=== PATIENT | female | born 1955 | race Caucasian/White ===

== ENCOUNTER 2018-04-12 14:45 | Inpatient (IN) ==
[2018-04-12 15:46] LABS: Bilirubin,Urine Negative (Negative); Blood,Urine Small (Negative); Clarity,Urine Cloudy (Clear); Color,Urine Yellow (Yellow); Glucose,Urine (UA) Normal (Normal); Ketones,Urine Negative (Negative); Leukocyte Esterase,Urine Large (Negative); Nitrite,Urine Negative (Negative); Protein,Urine 30 mg/dL (Neg-Trace); Specific Gravity,Urine 1.007 (1.010-1.025); Urobilinogen,Urine Normal (Normal)
[2018-04-12 15:49] LABS: Bacteria,Urine Moderate per hpf (None-Few); Hyaline Casts,Urine None Seen per lpf (None-Few); Squamous Epithelial Cell,Urine Moderate per lpf (None-Few); WBC,Urine TNTC per hpf (0-3)
--- NOTE | 2018-04-12 15:51 | Emergency Department Note ---
Disposition Clinical Impression: Urinary tract infection Qualifiers: Urinary tract infection type: site unspecified Hematuria presence: without hematuria Qualified Code(s): N39.0 - Urinary tract infection, site not specified Sepsis Qualifiers: Sepsis type: sepsis due to unspecified organism Qualified Code(s): A41.9 - Sepsis, unspecified organism Disposition: Admitted As Inpatient Condition: Fair Time of Disposition: 17:13 General Adult HPI - General Chief complaint: ED Urogenital-Female Stated complaint: UTI-worsening Time Seen by Provider: 04/12/18 15:03 Source: patient Limitations: no limitations Nursing Notes Reviewed: Yes Vital Signs Reviewed: Yes - History of Present Illness HPI Narrative: Patient is a 63-year-old female presenting to [facility] ED for a one-month history of gradually worsening UTI symptoms. Patient states that she was treated 1 month ago at an outpatient urgent care with a 5 day course of Bactrim for recurrent UTI symptoms. Patient states this treatment did very little to relieve her symptoms and that they have progressively worsened until today at approximately 11 AM when she noticed that she had increased fatigue, dizziness/lightheadedness/vertigo, and pain/"achiness" all throughout her body. Patient states that her mouth is dry and that she has a degree of odynophagia based on dry mouth. Patient states that she is intensely thirsty, and states that she has tinnitus, blurred vision, and feels like "you feel when you have a very high fever". Patient states that she is a type II diabetic that has experienced recurrent UTIs with subsequent yeast infections upon antibiotic therapy. Patient states that her blood sugar was 97 this morning and 130 this afternoon. Patient denies headache, chest pain, shortness of breath, nausea/vomiting, she admits to dark colored concentrated urine but denies hematuria or hematochezia. Pt Subjective Complaint: General malaise Onset (ago): month(s) Pain Severity: severe Pain Scale: 8 Improves with: nothing Worsens with: nothing Associated symptoms: Reports: fever/chills, malaise, weakness - Related Data Home Medications Medication Instructions Recorded Confirmed Glyburide-Metformin 5-500 mg 02/10/18 Lisinopril 02/10/18 Prilosec 02/10/18 Venlafaxine XR (24 HR) 02/10/18 Vitamin B12 02/10/18 Vitamin D 02/10/18 Previous Rx's Medication Instructions Recorded Albuterol Neb [Proventil Neb] 2.5 mg IH Q4-6H PRN #20 vial.neb 02/10/18 Amoxicillin/Clavulanate [Augmentin] 875 mg PO BIDWM 10 Days #20 tablet 02/10/18 Promethazine/Dextromethorphan 5 ml PO Q6HR PRN #90 ml 02/10/18 [Promethazine-Dm Syrup] Allergies Allergy/AdvReac Type Severity Reaction Status Date / Time No Known Allergies Allergy Verified 04/12/18 15:23 All systems ED: reviewed and negative except as stated. Review of Systems: As Per HPI Constitutional: Reports: fever, chills, weakness Eyes: Reports: vision change ENT ED: Reports: other (Tinnitus) Cardiovascular: Denies: chest pain Respiratory: Denies: dyspnea Gastrointestinal: Denies: abdominal pain, nausea, vomiting Genitourinary: Reports: dysuria. Denies: hematuria Musculoskeletal: Reports: arthralgia, myalgia Neurological: Reports: weakness. Denies: numbness, paresthesias Endocrine: Reports: fatigue, heat or cold intolerance Hematological/Lymphatic: Reports: lymphadenopathy Past Medical History - Past Medical History Medical history: Reports: diabetes, hypertension Psychiatric history: Reports: no psych history [employer] history: Reports: bilateral tubal ligation - Social History Smoking Status: Former smoker Smokeless Tobacco Status: No Alcohol use: Reports: none Drug use: Reports: none Physical Exam - General Limitations: no limitations General appearance: alert, other (Ill appearing) - Head Head exam: atraumatic, normocephalic, normal inspection - Eye Eye exam: Present: normal appearance, PERRL, EOMI. Absent: scleral icterus, conjunctival injection - Neck Neck exam: Present: normal inspection, trachea midline - Chest Chest inspection: Present: normal inspection, symmetric chest wall rise - Respiratory Respiratory exam: Present: normal lung sounds bilaterally. Absent: respiratory distress, wheezes, stridor, accessory muscle use, prolonged expiratory phase - Cardiovascular Cardiovascular exam: Present: regular rate, normal rhythm, normal heart sounds, +S1, +S2. Absent: JVD, +S3, +S4 - Abdominal Exam Abdominal exam: Present: soft, tenderness, normal bowel sounds. Absent: distention, guarding, rebound, rigidity Abdominal tenderness: Present: suprapubic, diffuse - Back Exam Back exam: Absent: CVA tenderness (R), CVA tenderness (L) - Neurological Exam Neurological exam: Present: alert, oriented X3 - Psychiatric Psychiatric exam: Present: normal affect, normal mood - Skin Skin exam: Present: warm, dry, intact, erythema. Absent: cyanosis, diaphoresis Course Course Narrative: Patient presentation meets Sirs criteria in with tachycardia, tachypnea, and fever to 101.5. ED sepsis order set initiated with sepsis labs in addition to chest x-ray and CT scan of the abdomen and pelvis performed. - Reevaluation(s) Reevaluation #1: Urinalysis resulted identifying source of infection. Patient now meets sepsis criteria. IV antibiotics vancomycin and Zosyn began for broad-spectrum coverage. Time: 16:57 Vital Signs Temperature 100.0 F H 04/12/18 14:57 Pulse Rate 127 04/12/18 14:57 Respiratory Rate 22 04/12/18 14:57 Blood Pressure 156/83 04/12/18 14:57 O2 Sat by Pulse Oximetry 97 04/12/18 14:57 Temperature 101.5 F H 04/12/18 15:23 Pulse Rate 97 04/12/18 17:08 Respiratory Rate 20 04/12/18 17:08 Blood Pressure 150/82 04/12/18 17:08 O2 Sat by Pulse Oximetry 97 04/12/18 17:08 Oxygen Delivery Oxygen Delivery Room Air Medical Decision Making - MDM Narrative Medical decision making narrative: Urinalysis identified source of infection. Patient now meets sepsis criteria. Vancomycin and Zosyn initiated for broad-spectrum antibiotic coverage. Patient will be admitted to the hospital for further antibiotic management and symptom control. Hospitalist accepted admission. Plans for admission discussed with the patient and patient is in agreement with this plan. - Lab Data Lab results reviewed: Yes I reviewed the patient's lab results. Result diagrams: 04/12/18 15:45 04/12/18 15:45 Lab Results 04/12/18 04/12/18 04/12/18 Range/Units 15:36 15:45 15:45 WBC (4.3-11.1) K/mcL RBC (3.82-4.97) M/mcL Hgb (11.5-15.4) g/dL Hct (35.3-44.9) % MCV (83.0-100.0) fL MCH (28.0-33.3) pg MCHC (31.6-35.5) g/dL RDW (11.5-14.5) % Plt Count (140-400) K/mcL MPV (9.4-12.4) fL Immature Gran % (0-4) % Seg Neutrophils % % Lymphocytes % % Monocytes % % Eosinophils % % Basophils % % Neutrophils # (1.6-8.9) K/mcL Lymphocytes # (0.6-4.6) K/mcL Monocytes # (0.0-1.3) K/mcL Eosinophils # (0.0-0.6) K/mcL Basophils # (0.0-0.2) K/mcL PT (9.4-12.1) Seconds INR APTT (26.0-36.0) Seconds VBG pH (7.32-7.42) pH Units VBG pCO2 (41-51) mmHg VBG pO2 (25-50) mmHg VBG HCO3 (21-27) mEq/L Sodium (136-145) mEq/L Potassium (3.5-5.1) mEq/L Chloride (98-107) mEq/L Carbon Dioxide (23-29) mEq/L BUN (8-23) mg/dL Creatinine (0.60-1.20) mg/dL Est GFR ( Amer) (> 60) Est GFR (Non-Af Amer) (> 60) BUN/Creatinine Ratio (6-26) Glucose (70-105) mg/dL Calculated Osmolality (280-300) Lactic Acid (0.5-2.2) mmol/L Calcium (8.6-10.3) mg/dL Phosphorus (2.7-4.5) mg/dL Magnesium (1.6-2.6) mg/dL Total Bilirubin (0.3-1.0) mg/dL Direct Bilirubin (0.0-0.2) mg/dL Indirect Bilirubin (0.0-1.2) mg/dL AST (13-39) Units/L ALT (7-52) Units/L Alkaline Phosphatase (34-104) Units/L Troponin I (< 0.04) ng/mL B-Natriuretic Peptide 24 (Less than 100) pg/mL Serum Total Protein (6.4-8.9) g/dL Albumin (3.5-5.7) g/dL Globulin (2.4-3.5) g/dL Albumin/Globulin Ratio (1.1-2.2) Lipase 33 (11-82) Units/L Urine Color Yellow (Yellow) Urine Clarity Cloudy A (Clear) Urine pH 6.0 (5.0-8.0) pH Units Ur Specific [place] 1.007 L (1.010-1.025) Urine Protein 30 H (Neg-Trace) mg/dL Urine Glucose (UA) Normal (Normal) mg/dL Urine Ketones Negative (Negative) mg/dL Urine Blood Small H (Negative) Urine Nitrite Negative (Negative) Urine Bilirubin Negative (Negative) Urine Urobilinogen Normal (Normal) mg/dL Ur Leukocyte Esterase Large H (Negative) Urine Microscopic RBC 5-15 H (0-3) per hpf Urine Microscopic WBC TNTC H (0-3) per hpf Ur Squamous Epith Cells Moderate H (None-Few) per lpf Urine Bacteria Moderate H (None-Few) per hpf Hyaline Casts None Seen (None-Few) per lpf Ur Culture Indicated? YES A (NO) 04/12/18 04/12/18 04/12/18 Range/Units 15:45 15:45 15:45 WBC 11.9 H (4.3-11.1) K/mcL RBC 4.06 (3.82-4.97) M/mcL Hgb 12.6 (11.5-15.4) g/dL Hct 36.8 (35.3-44.9) % MCV 90.6 (83.0-100.0) fL MCH 31.0 (28.0-33.3) pg MCHC 34.2 (31.6-35.5) g/dL RDW 12.1 (11.5-14.5) % Plt Count 286 (140-400) K/mcL MPV 9.0 L (9.4-12.4) fL Immature Gran % 0.3 (0-4) % Seg Neutrophils % 78.3 % Lymphocytes % 15.7 % Monocytes % 5.0 % Eosinophils % 0.4 % Basophils % 0.3 % Neutrophils # 9.3 H (1.6-8.9) K/mcL Lymphocytes # 1.9 (0.6-4.6) K/mcL Monocytes # 0.6 (0.0-1.3) K/mcL Eosinophils # 0.1 (0.0-0.6) K/mcL Basophils # 0.0 (0.0-0.2) K/mcL PT 11.9 (9.4-12.1) Seconds INR 1.1 APTT 26.6 (26.0-36.0) Seconds VBG pH (7.32-7.42) pH Units VBG pCO2 (41-51) mmHg VBG pO2 (25-50) mmHg VBG HCO3 (21-27) mEq/L Sodium 137 (136-145) mEq/L Potassium 3.7 (3.5-5.1) mEq/L Chloride 99 (98-107) mEq/L Carbon Dioxide 27 (23-29) mEq/L BUN 13 (8-23) mg/dL Creatinine 0.96 (0.60-1.20) mg/dL Est GFR ( Amer) > 60 (> 60) Est GFR (Non-Af Amer) 59 L (> 60) BUN/Creatinine Ratio 14 (6-26) Glucose 127 H (70-105) mg/dL Calculated Osmolality 286 (280-300) Lactic Acid (0.5-2.2) mmol/L Calcium 9.4 (8.6-10.3) mg/dL Phosphorus 2.8 (2.7-4.5) mg/dL Magnesium 1.4 L (1.6-2.6) mg/dL Total Bilirubin 0.8 (0.3-1.0) mg/dL Direct Bilirubin 0.1 (0.0-0.2) mg/dL Indirect Bilirubin 0.7 (0.0-1.2) mg/dL AST 15 (13-39) Units/L ALT 16 (7-52) Units/L Alkaline Phosphatase 92 (34-104) Units/L Troponin I < 0.03 (< 0.04) ng/mL B-Natriuretic Peptide (Less than 100) pg/mL Serum Total Protein 7.3 (6.4-8.9) g/dL Albumin 4.2 (3.5-5.7) g/dL Globulin 3.1 (2.4-3.5) g/dL Albumin/Globulin Ratio 1.4 (1.1-2.2) Lipase (11-82) Units/L Urine Color (Yellow) Urine Clarity (Clear) Urine pH (5.0-8.0) pH Units Ur Specific [place] (1.010-1.025) Urine Protein (Neg-Trace) mg/dL Urine Glucose (UA) (Normal) mg/dL Urine Ketones (Negative) mg/dL Urine Blood (Negative) Urine Nitrite (Negative) Urine Bilirubin (Negative) Urine Urobilinogen (Normal) mg/dL Ur Leukocyte Esterase (Negative) Urine Microscopic RBC (0-3) per hpf Urine Microscopic WBC (0-3) per hpf Ur Squamous Epith Cells (None-Few) per lpf Urine Bacteria (None-Few) per hpf Hyaline Casts (None-Few) per lpf Ur Culture Indicated? (NO) 04/12/18 04/12/18 Range/Units 15:45 16:05 WBC (4.3-11.1) K/mcL RBC (3.82-4.97) M/mcL Hgb (11.5-15.4) g/dL Hct (35.3-44.9) % MCV (83.0-100.0) fL MCH (28.0-33.3) pg MCHC (31.6-35.5) g/dL RDW (11.5-14.5) % Plt Count (140-400) K/mcL MPV (9.4-12.4) fL Immature Gran % (0-4) % Seg Neutrophils % % Lymphocytes % % Monocytes % % Eosinophils % % Basophils % % Neutrophils # (1.6-8.9) K/mcL Lymphocytes # (0.6-4.6) K/mcL Monocytes # (0.0-1.3) K/mcL Eosinophils # (0.0-0.6) K/mcL Basophils # (0.0-0.2) K/mcL PT (9.4-12.1) Seconds INR APTT (26.0-36.0) Seconds VBG pH 7.42 (7.32-7.42) pH Units VBG pCO2 45 (41-51) mmHg VBG pO2 45 (25-50) mmHg VBG HCO3 29 H (21-27) mEq/L Sodium (136-145) mEq/L Potassium (3.5-5.1) mEq/L Chloride (98-107) mEq/L Carbon Dioxide (23-29) mEq/L BUN (8-23) mg/dL Creatinine (0.60-1.20) mg/dL Est GFR ( Amer) (> 60) Est GFR (Non-Af Amer) (> 60) BUN/Creatinine Ratio (6-26) Glucose (70-105) mg/dL Calculated Osmolality (280-300) Lactic Acid 1.5 (0.5-2.2) mmol/L Calcium (8.6-10.3) mg/dL Phosphorus (2.7-4.5) mg/dL Magnesium (1.6-2.6) mg/dL Total Bilirubin (0.3-1.0) mg/dL Direct Bilirubin (0.0-0.2) mg/dL Indirect Bilirubin (0.0-1.2) mg/dL AST (13-39) Units/L ALT (7-52) Units/L Alkaline Phosphatase (34-104) Units/L Troponin I (< 0.04) ng/mL B-Natriuretic Peptide (Less than 100) pg/mL Serum Total Protein (6.4-8.9) g/dL Albumin (3.5-5.7) g/dL Globulin (2.4-3.5) g/dL Albumin/Globulin Ratio (1.1-2.2) Lipase (11-82) Units/L Urine Color (Yellow) Urine Clarity (Clear) Urine pH (5.0-8.0) pH Units Ur Specific [place] (1.010-1.025) Urine Protein (Neg-Trace) mg/dL Urine Glucose (UA) (Normal) mg/dL Urine Ketones (Negative) mg/dL Urine Blood (Negative) Urine Nitrite (Negative) Urine Bilirubin (Negative) Urine Urobilinogen (Normal) mg/dL Ur Leukocyte Esterase (Negative) Urine Microscopic RBC (0-3) per hpf Urine Microscopic WBC (0-3) per hpf Ur Squamous Epith Cells (None-Few) per lpf Urine Bacteria (None-Few) per hpf Hyaline Casts (None-Few) per lpf Ur Culture Indicated? (NO) - Radiology Data Radiology results reviewed: Yes I reviewed the patient's radiology results. Chest X-Ray 04/12/18 15:28 IMPRESSION: No radiographic evidence of acute cardiopulmonary process. No significant change since previous examination. D/ / Tay Elias MD / Tay Elias MD Interpreting Provider: Tay Elias MD Abdomen/Pelvis CT 04/12/18 15:29 IMPRESSION: 1. No acute findings within the abdomen or pelvis. There are mild changes suggestive of a cystitis. 2. No evidence of obstructive uropathy or significant perinephric inflammatory changes. Evaluation for pyelonephritis is limited by the lack of intravenous contrast. 3. Status post cholecystectomy. Diverticulosis with no acute features. D/ / 04/12/2018 16:49:12 Pete Joseph MD / alda Interpreting Provider: Pete Joseph MD - EKG Data EKG #1 EKG attestation: Yes I reviewed and interpreted this EKG. EKG results narrative: Patient EKG shows a sinus tachycardia with heart rate of 110 bpm, UT interval 163 ms, QRS duration of 91 ms, QT/QTc interval of 319/432 ms respectively. Meadow appears to be normal without any significant ST segment elevations, depressions, T-wave inversions, pathologic Q waves, or any other signs of acute ischemic glen[place] nge. EKG performed today is generally consistent with prior EKG performed on February [id number]. Critical Care Time Critical Care Time: Yes Total Critical Care Time: 35 Attestation: Critical care time 35 minutes managing patient's sepsis. Attestation Statement - Attestation Attestation: Patient was seen with resident physician. I reviewed the history, physical, assessment and plan, and agree with the findings. I also personally evaluated this patient and had laiw-oh-hfpt time with this patient. 63-year-old female presents to the emergency Department chief complaint of generalized malaise and not feeling well. Patient apparently was diagnosed with urinary tract infection approximately one month ago. She do 5 day course of Bactrim. Symptoms really never resolved and she was given some Pyridium to try and help. She has taken out a little bit but progressively has gotten worse. She still has some mild dysuria. No abdominal pain. No nausea or vomiting. She says she has pain from head to toe and just feels generally weakened. She is also had some fevers at home. Review of systems as above remained reviewed negative. Vital signs febrile and tachycardic. ENT is unremarkable. Heart regular rhythm and rate. Lungs clear. Abdomen is soft and nontender. Extremities unremarkable. Neurologically intact. Skin no rashes. Psych normal. ED course patient met sepsis criteria with triage vital signs. This continued with elevated white blood cell count. Patient was given IV antibiotics and fluids. We are able to keep a good blood pressure. Urinalysis was positive for UTI. We will do CT scan the chest x-ray as well. Patient will be admitted for IV antibiotic therapy. Hemodynamically she remained stable while in the emergency department. Her heart rate was improved. Tolerated IV fluids well. CT scan of the abdomen did not reveal any significant abnormalities. Chest x- ray was also unremarkable. Labs showed elevated white blood cell count. We spoke to the hospital service agreed to admit the patient. Critical care time 35 minutes. Agree with resident physician assessment and plan.
[2018-04-12 16:05] LABS: Basophils % 0.3 %; Eosinophils # 0.1 K/mcL (0.0-0.6); Eosinophils % 0.4 %; Hematocrit 36.8 % (35.3-44.9); Hemoglobin 12.6 g/dL (11.5-15.4); Immature Granulocytes % 0.3 % (0-4); Lymphocytes # 1.9 K/mcL (0.6-4.6); Lymphocytes % 15.7 %; Mean Corpuscular HGB Conc 34.2 g/dL (31.6-35.5); Mean Corpuscular Volume 90.6 fL (83.0-100.0); Monocytes # 0.6 K/mcL (0.0-1.3); Neutrophils # 9.3 K/mcL (1.6-8.9); Platelet Count 286 K/mcL (140-400); Red Blood Count 4.06 M/mcL (3.82-4.97); Red Cell Distribution Width 12.1 % (11.5-14.5); Segmented Neutrophils % 78.3 %
[2018-04-12 16:08] LABS: VBG HCO3 29 mEq/L (21-27); VBG PCO2 45 mmHg (41-51); VBG PH 7.42 pH Units (7.32-7.42); VBG PO2 45 mmHg (25-50)
[2018-04-12] MEDS: 0.9 % Sodium Chloride 1,000 ML IVC SCH ×3 (16:12→20:29)
[2018-04-12 16:16] LABS: INR 1.1; Prothrombin Time 11.9 Seconds (9.4-12.1)
[2018-04-12 16:18] LABS: Activated Partial Thrombo Time 26.6 Seconds (26.0-36.0)
[2018-04-12 16:28] LABS: Alanine Aminotransferase 16 Units/L (7-52); Albumin 4.2 g/dL (3.5-5.7); Albumin/Globulin Ratio 1.4 (1.1-2.2); Alkaline Phosphatase 92 Units/L (34-104); Aspartate Amino Transferase 15 Units/L (13-39); BUN/Creatinine Ratio 14 (6-26); Bilirubin,Direct 0.1 mg/dL (0.0-0.2); Bilirubin,Indirect 0.7 mg/dL (0.0-1.2); Bilirubin,Total 0.8 mg/dL (0.3-1.0); Blood Urea Nitrogen 13 mg/dL (8-23); Calcium 9.4 mg/dL (8.6-10.3); Carbon Dioxide 27 mEq/L (23-29); Chloride 99 mEq/L (98-107); Globulin 3.1 g/dL (2.4-3.5); Glucose 127 mg/dL (70-105); Magnesium 1.4 mg/dL (1.6-2.6); Osmolality,Calculated 286 (280-300); Phosphorous 2.8 mg/dL (2.7-4.5); Potassium 3.7 mEq/L (3.5-5.1); Sodium 137 mEq/L (136-145); Total Protein 7.3 g/dL (6.4-8.9); Troponin I < 0.03 ng/mL (< 0.04); eGFR For Non-African Americans 59 (> 60)
[2018-04-12] MEDS ORDERED: Naloxone 0.4 MG/ML INJ IVP PRN (17:22)
[2018-04-12] MEDS: Piperacillin/Tazobactam 3.375 GM in 0.9 % Sodium Chloride Mini Bag 100 ML IVPB SCH (17:22)
[2018-04-12] MEDS ORDERED: 0.9 % Sodium Chloride w KCl 20 MEQ/1,000 ML MLS IVC SCH (17:30)
--- NOTE | 2018-04-12 17:35 | Internal Med History&Physical ---
Date of Encounter: 04/12/18 Time of Encounter: 17:29 Internal Medicine - H&P: HPI Chief complaint: dysuria Admitted From: Home Plans for Post Hospital Care: Home History of present illness: Ms. Louise is a 63 year old female with history of diabetes and hypertension presented to the emergency department with complaint of dysuria. As per patient her symptoms has been bothering her for the past 1 month and she is visited outpatient urgent care and has received 5 day course of Bactrim for recurrent urinary tract symptoms. she reports that she has pain on urination, frequency, denies hematuria or itching or discharge. she is sexually active with her . Her symptoms progressively worsened until the day of admission she developed chills, increased fatigue, dizziness and lightheadedness and "achiness" all throughout her body so she decided to come to the emergency department for further evaluation. she denies chest pain, palpitations, N/v/D, LOC, loss of function in her extremities, head trauma, falls, back pain Past Med Surg Social Fam HX - Past Medical History Medical history: diabetes, hypertension Psychiatric history: no psych history - Past Surgical History Surgical History: non-contributory - Social History Smoking Status: Former smoker Smokeless Tobacco Status: No Alcohol use: none Drug use: none Internal Medicine - H&P: Meds Albuterol Neb [Proventil Neb] 2.5 mg IH Q4-6H PRN #20 vial.neb 02/10/18 [Rx] Amoxicillin/Clavulanate [Augmentin] 875 mg PO BIDWM 10 Days #20 tablet 02/10/18 [Rx] Glyburide-Metformin 5-500 mg 02/10/18 [History] Lisinopril 02/10/18 [History] Prilosec 02/10/18 [History] Promethazine/Dextromethorphan [Promethazine-Dm Syrup] 5 ml PO Q6HR PRN #90 ml 02/10/18 [Rx] Venlafaxine XR (24 HR) 02/10/18 [History] Vitamin B12 02/10/18 [History] Vitamin D 02/10/18 [History] Allergy/AdvReac Type Severity Reaction Status Date / Time No Known Allergies Allergy Verified 04/12/18 15:23 All Systems PM: review of systems was performed and is negative for pertinent findings except as documented above in the HPI. - Constitutional Vitals: Temp Pulse Resp BP Pulse Ox 101.5 F H 97 20 150/82 97 04/12/18 15:23 04/12/18 17:08 04/12/18 17:08 04/12/18 17:08 04/12/18 17:08 Exam: General: Patient is alert, oriented, no acute distress, obese Head: atraumatic, normocephalic, Eye: normal appearance, PERRL, no scleral icterus, no conjunctival injection ENT: mucous membranes moist, normal external ear exam Neck: normal inspection, trachea midline, full ROM, no carotid bruits Chest: normal inspection, symmetric chest rise Respiratory: Good respiratory effort. Bilateral breath sounds are clear without wheezing, crackles, or rhonchi. Cardiovascular: Regular rate and rhythm. s1 and s2 No clicks, rubs, gallops, or murmors. Abdomen: Bowel sounds present normoactive x-4 quadrants. Abdomen is soft, nondistended. no Epigastric tenderness. No guarding or rebound. No organomegaly noted, obese, no CAV tenderness musculoskeletal: Spontaneously moving all extremities. no edema, no calf tenderness Skin: warm, dry, intact. Neuro: Alert and oriented x4. Sensation light touch intact. Cranial nerves 2- 12 is intact. Not aphasic, rapid hand movements intact, [id number] intact, strength is 5/5 in all extremities Psych: Patient's affect is normal Internal Med - H&P Results - Labs CBC & Chem 7: 04/12/18 15:45 04/12/18 15:45 Labs: Short CBC 04/12/18 Range/Units 15:45 WBC 11.9 H (4.3-11.1) K/mcL Hgb 12.6 (11.5-15.4) g/dL Hct 36.8 (35.3-44.9) % Plt Count 286 (140-400) K/mcL Neutrophils # 9.3 H (1.6-8.9) K/mcL BMP 04/12/18 15:45 Sodium 137 Potassium 3.7 Chloride 99 Carbon Dioxide 27 BUN 13 Creatinine 0.96 Glucose 127 H Calcium 9.4 Cardiac Enzymes 04/12/18 Range/Units 15:45 Troponin I < 0.03 (< 0.04) ng/mL Liver Function 04/12/18 Range/Units 15:45 Total Bilirubin 0.8 (0.3-1.0) mg/dL Direct Bilirubin 0.1 (0.0-0.2) mg/dL AST 15 (13-39) Units/L ALT 16 (7-52) Units/L Alkaline Phosphatase 92 (34-104) Units/L Albumin 4.2 (3.5-5.7) g/dL Urine 04/12/18 Range/Units 15:36 Urine Color Yellow (Yellow) Urine Clarity Cloudy A (Clear) Urine pH 6.0 (5.0-8.0) pH Units Ur Specific [place] 1.007 L (1.010-1.025) Urine Protein 30 H (Neg-Trace) mg/dL Urine Glucose (UA) Normal (Normal) mg/dL - ABG Interpretation ABG results: 04/12/18 16:05 VBG pH 7.42 VBG pCO2 45 VBG pO2 45 VBG HCO3 29 H - EKG Data -: EKG Interpreted by Myself (sinus tachycardia, QT 432) - EKG Data Prior EKG available for review: yes When compared to previous EKG: there is no significant change - Impressions ITS Impressions Chest X-Ray 04/12/18 15:28 IMPRESSION: No radiographic evidence of acute cardiopulmonary process. No significant change since previous examination. D/ / Tay Elias MD / Tay Elias MD Interpreting Provider: Tay Elias MD Abdomen/Pelvis CT 04/12/18 15:29 IMPRESSION: 1. No acute findings within the abdomen or pelvis. There are mild changes suggestive of a cystitis. 2. No evidence of obstructive uropathy or significant perinephric inflammatory changes. Evaluation for pyelonephritis is limited by the lack of intravenous contrast. 3. Status post cholecystectomy. Diverticulosis with no acute features. D/ / 04/12/2018 16:49:12 Pete Joseph MD / alda Interpreting Provider: Pete Joseph MD - Assessment and plan (1) Complicated UTI (urinary tract infection) Current Visit: Yes Status: Acute Assessment and plan: failed multiple OP therapies was started on zosyn will continue follow ucx and bcx and deescalate as per cx CT A/P IMPRESSION: 1. No acute findings within the abdomen or pelvis. There are mild changes suggestive of a cystitis. 2. No evidence of obstructive uropathy or significant perinephric inflammatory changes. Evaluation for pyelonephritis is limited by the lack of intravenous contrast. 3. Status post cholecystectomy. Diverticulosis with no acute features. (2) Sepsis Current Visit: Yes Status: Acute Assessment and plan: secondary to complicated UTI fever 101.5, tachycardic 127, leukocytosis 11.9 lactic acid WNL follow gomez cx IV zosyn rest of management as per above Qualifiers: Sepsis type: sepsis due to unspecified organism Qualified Code(s): A41.9 - Sepsis, unspecified organism (3) Diabetes type 2, controlled Current Visit: Yes Status: Acute Assessment and plan: hold oral hypoglycemics and start insulin sliding scale adjust as per finger sticks Qualifiers: Diabetes mellitus ocean transportation intermediary insulin use: without ocean transportation intermediary use Diabetes mellitus complication status: without complication Qualified Code(s): E11.9 - Type 2 diabetes mellitus without complications (4) HTN (hypertension) Current Visit: Yes Status: Acute Assessment and plan: continue home medications once verified if not CI Qualifiers: Hypertension type: essential hypertension Qualified Code(s): I10 - Essential (primary) hypertension (5) DVT prophylaxis Current Visit: Yes Status: Acute Assessment and plan: heparin sc (6) Morbidly obese Current Visit: Yes Status: Acute Assessment and plan: BMI 43 nutrition consult - Time Spent With Patient Total time spent is greater than 50% in coordination of care (as documented) at patient's floor/unit and/or counseling patient:
[2018-04-12] MEDS ORDERED: Dextrose Gel 15 GM/37.5 ML TUBE PO PRN ×2 (17:50)
[2018-04-12] MEDS ORDERED: *HR* Dextrose 50 % in Water (Syg) 50 ML SYRINGE IVP PRN (17:50)
[2018-04-12] MEDS ORDERED: D5% in Water 1,000 ML IVC PRN (17:50)
[2018-04-12] MEDS: Acetaminophen 325 MG TABLET PO PRN (20:22)
[2018-04-12] MEDS: Insulin LISPRO 300 UNITS/3 ML VIAL SQ SCH (21:58)
[2018-04-12] MEDS: *HR* Heparin 5,000 UNIT/ML VIAL SQ SCH (21:59)
[2018-04-13] MEDS ORDERED: Piperacillin/Tazobactam 3.375 GM in 0.9 % Sodium Chloride Mini Bag 100 ML IVPB SCH
[2018-04-13] MEDS: Insulin LISPRO 300 UNITS/3 ML VIAL SQ SCH ×4 (02:00→16:30)
[2018-04-13] MEDS: Piperacillin/Tazobactam 3.375 GM in 0.9 % Sodium Chloride Mini Bag 100 ML IVPB SCH ×3 (03:03→17:51)
[2018-04-13] MEDS: Acetaminophen 325 MG TABLET PO PRN ×4 (03:32→21:07)
[2018-04-13 04:39] LABS: Basophils % 0.2 %; Eosinophils % 0.4 %; Immature Granulocytes % 0.3 % (0-4); Lymphocytes # 1.9 K/mcL (0.6-4.6); Lymphocytes % 17.7 %; Mean Corpuscular HGB Conc 34.1 g/dL (31.6-35.5); Mean Corpuscular Hemoglobin 31.1 pg (28.0-33.3); Mean Corpuscular Volume 91.4 fL (83.0-100.0); Mean Platelet Volume 9.5 fL (9.4-12.4); Monocytes # 0.9 K/mcL (0.0-1.3); Monocytes % 8.2 %; Neutrophils # 7.8 K/mcL (1.6-8.9); Platelet Count 248 K/mcL (140-400); Red Cell Distribution Width 12.2 % (11.5-14.5); Segmented Neutrophils % 73.2 %
[2018-04-13 04:42] LABS: Hemoglobin 10.9 g/dL (11.5-15.4)
[2018-04-13 05:00] LABS: BUN/Creatinine Ratio 15 (6-26); Blood Urea Nitrogen 10 mg/dL (8-23); Carbon Dioxide 24 mEq/L (23-29); Chloride 105 mEq/L (98-107); Glucose 115 mg/dL (70-105); Magnesium 1.6 mg/dL (1.6-2.6); Osmolality,Calculated 288 (280-300); Phosphorous 2.6 mg/dL (2.7-4.5); Potassium 3.3 mEq/L (3.5-5.1); Sodium 139 mEq/L (136-145); eGFR For Non-African Americans > 60 (> 60)
[2018-04-13] MEDS: 0.9 % Sodium Chloride 1,000 ML IVC SCH ×2 (05:50→16:32)
[2018-04-13] MEDS: *HR* Heparin 5,000 UNIT/ML VIAL SQ SCH ×3 (05:51→21:07)
[2018-04-13 07:53] LABS: Estimated Average Glucose 148 mg/dl; Hemoglobin A1C 6.8 %
--- NOTE | 2018-04-13 15:15 | Internal Med Progress Note ---
Hospitalist Progress Note - Encounter Date of Encounter: 04/13/18 Time of Encounter: 15:12 - Subjective Interval History: Seen and examined at bedside. Says she is tired and weak but overall improved. No dysuria, no flank pain - Exam Vitals: Temp Pulse Resp BP Pulse Ox 101.8 F H 84 14 124/72 93 04/13/18 14:40 04/13/18 14:40 04/13/18 14:40 04/13/18 14:40 04/13/18 14:40 Exam: General: Patient is alert, oriented, no acute distress, obese Head: atraumatic, normocephalic, Eye: normal appearance, PERRL, no scleral icterus, no conjunctival injection ENT: mucous membranes moist, normal external ear exam Neck: normal inspection, trachea midline, full ROM, no carotid bruits Chest: normal inspection, symmetric chest rise Respiratory: Good respiratory effort. Bilateral breath sounds are clear without wheezing, crackles, or rhonchi. Cardiovascular: Regular rate and rhythm. s1 and s2 No clicks, rubs, gallops, or murmors. Abdomen: Bowel sounds present normoactive x-4 quadrants. Abdomen is soft, nondistended. no Epigastric tenderness. No guarding or rebound. No o rganomegaly noted, obese, no CAV tenderness musculoskeletal: Spontaneously moving all extremities. no edema, no calf tenderness Skin: warm, dry, intact. Neuro: Alert and oriented x4. Sensation light touch intact. Cranial nerves 2- 12 is intact. Not aphasic, rapid hand movements intact, [id number] intact, strength is 5/5 in all extremities Psych: Patient's affect is normal - Assessment and Plan (1) Complicated UTI (urinary tract infection) Current Visit: Yes Status: Acute Assessment and Plan: failed multiple outpatient therapies. ABD CT showed mild changes suggestive of a cystitis. Urine cx with gram negative maru. Cont IV Zosyn for now. Follw cx and narrow ATB accordingly (2) Sepsis Current Visit: Yes Status: Acute Assessment and Plan: secondary to complicated UTI; fever 101.5, tachycardic 127, leukocytosis 11.9, lactic acid WNL. Blood cx's NGTD. Plan as noted above. Cont IV Zosyn (3) Diabetes type 2, controlled Current Visit: Yes Status: Acute Assessment and Plan: per hx. Hold oral hypoglycemics. Cont SSI. Monitor blood sugar and titrate PRN (4) HTN (hypertension) Current Visit: Yes Status: Acute Assessment and Plan: continue home medications once verified if not CI (5) Morbidly obese Current Visit: Yes Status: Acute Assessment and Plan: BMI 43; nutrition consult DVT Prophylaxis: heparin - Time Spent with Patient Total time spent is greater than 50% in coordination of care (as documented) at patient's floor/unit and/or counseling patient: Internal Medicine: Result - Labs CBC & Chem 7: 04/13/18 03:24 04/13/18 03:24 Labs: Short CBC 04/13/18 Range/Units 03:24 WBC 10.6 (4.3-11.1) K/mcL Hgb 10.9 L D (11.5-15.4) g/dL Hct 32.0 L (35.3-44.9) % Plt Count 248 (140-400) K/mcL Neutrophils # 7.8 (1.6-8.9) K/mcL BMP 04/12/18 04/13/18 15:45 03:24 Sodium 137 139 Potassium 3.7 3.3 L Chloride 99 105 Carbon Dioxide 27 24 BUN 13 10 Creatinine 0.96 0.68 Glucose 127 H 115 H Calcium 9.4 8.0 L Cardiac Enzymes 04/12/18 Range/Units 15:45 Troponin I < 0.03 (< 0.04) ng/mL Liver Function 04/12/18 Range/Units 15:45 Total Bilirubin 0.8 (0.3-1.0) mg/dL Direct Bilirubin 0.1 (0.0-0.2) mg/dL AST 15 (13-39) Units/L ALT 16 (7-52) Units/L Alkaline Phosphatase 92 (34-104) Units/L Albumin 4.2 (3.5-5.7) g/dL - ABG Interpretation ABG results: PT/INR, D-dimer PT 11.9 Seconds (9.4-12.1) 04/12/18 15:45 - Impressions Impressions Chest X-Ray 04/12/18 15:28 IMPRESSION: No radiographic evidence of acute cardiopulmonary process. No significant change since previous examination. D/ / Tay Elias MD / Tay Elias MD Interpreting Provider: Tay Elias MD Abdomen/Pelvis CT 04/12/18 15:29 IMPRESSION: 1. No acute findings within the abdomen or pelvis. There are mild changes suggestive of a cystitis. 2. No evidence of obstructive uropathy or significant perinephric inflammatory changes. Evaluation for pyelonephritis is limited by the lack of intravenous contrast. 3. Status post cholecystectomy. Diverticulosis with no acute features. D/ / 04/12/2018 16:49:12 Pete Joseph MD / alda Interpreting Provider: Pete Joseph MD Consult Discharge Plan - Plan (2) Sepsis Qualifiers: Sepsis type: sepsis due to unspecified organism Qualified Code(s): A41.9 - Sepsis, unspecified organism (3) Diabetes type 2, controlled Qualifiers: Diabetes mellitus long term care pharmacist insulin use: without long term care pharmacist use Diabetes mellitus complication status: without complication Qualified Code(s): E11.9 - Type 2 diabetes mellitus without complications (4) HTN (hypertension) Qualifiers: Hypertension type: essential hypertension Qualified Code(s): I10 - Essential (primary) hypertension
[2018-04-13] MEDS ORDERED: traMADol 50 MG TABLET PO ONE (16:18)
[2018-04-13] MEDS ORDERED: Insulin LISPRO 300 UNITS/3 ML VIAL SQ SCH (21:00)
[2018-04-14] MEDS: Piperacillin/Tazobactam 3.375 GM in 0.9 % Sodium Chloride Mini Bag 100 ML IVPB SCH ×2 (02:55→09:33)
[2018-04-14] MEDS: *HR* Heparin 5,000 UNIT/ML VIAL SQ SCH (05:46)
[2018-04-14 05:56] LABS: Hematocrit 31.9 % (35.3-44.9); Hemoglobin 10.6 g/dL (11.5-15.4); Mean Corpuscular HGB Conc 33.2 g/dL (31.6-35.5); Mean Corpuscular Hemoglobin 30.5 pg (28.0-33.3); Mean Corpuscular Volume 91.9 fL (83.0-100.0); Mean Platelet Volume 9.4 fL (9.4-12.4); Platelet Count 249 K/mcL (140-400); Red Blood Count 3.47 M/mcL (3.82-4.97); Red Cell Distribution Width 12.3 % (11.5-14.5)
[2018-04-14 06:13] LABS: BUN/Creatinine Ratio 10 (6-26); Blood Urea Nitrogen 8 mg/dL (8-23); Calcium 8.4 mg/dL (8.6-10.3); Carbon Dioxide 25 mEq/L (23-29); Chloride 107 mEq/L (98-107); Glucose 102 mg/dL (70-105); Osmolality,Calculated 287 (280-300); Potassium 3.6 mEq/L (3.5-5.1); Sodium 139 mEq/L (136-145); eGFR For Non-African Americans > 60 (> 60)
[2018-04-14] MEDS: Insulin LISPRO 300 UNITS/3 ML VIAL SQ SCH (08:07)
[2018-04-14 10:41] VITALS: BP 137/79
[2018-04-14] MEDS: Acetaminophen 325 MG TABLET PO PRN (10:52)
--- NOTE | 2018-04-14 11:45 | Discharge Summary ---
Orders not resulted at time of discharge: Pending orders 04/12/18 15:45 Culture,Blood [BC] Stat 04/15/18 04:00 BMP [Basic Metabolic Panel] AM 0400 Complete Blood Count w/o Diff [HEME] AM 0400 04/16/18 04:00 BMP [Basic Metabolic Panel] AM 0400 Complete Blood Count w/o Diff [HEME] AM 0400 04/17/18 04:00 BMP [Basic Metabolic Panel] AM 0400 Complete Blood Count w/o Diff [HEME] AM 0400 04/18/18 04:00 BMP [Basic Metabolic Panel] AM 0400 Complete Blood Count w/o Diff [HEME] AM 0400 Date of Encounter: 04/14/18 Time of Encounter: 12:42 - Discharge Diagnosis (1) Complicated UTI (urinary tract infection) Priority: Primary Status: Acute Assessment and Plan: failed multiple outpatient therapies including Bactrim. ABD CT showed mild changes suggestive of a cystitis. Urine cx pansensitive Escherichia coli. Received 3 doses Zosyn while inpatient. Discharge home on Augmenttin (total duration of therapy 10 days). Recommend follow-up with PCP within one week (2) Sepsis Priority: Primary Status: Resolved Assessment and Plan: secondary to complicated UTI; fever 101.5, tachycardic 127, leukocytosis 11.9, lactic acid WNL. Blood cx's NGTD. Treated with IV fluids and Zosyn. Sepsis resolved at time of discharge Qualifiers: Sepsis type: sepsis due to unspecified organism Qualified Code(s): A41.9 - Sepsis, unspecified organism (3) Diabetes type 2, controlled Priority: Secondary Status: Acute Assessment and Plan: per hx. Cont home diabetes medication regimen Qualifiers: Diabetes mellitus manager terminal insulin use: without detention use Diabetes mellitus complication status: without complication Qualified Code(s): E11.9 - Type 2 diabetes mellitus without complications (4) HTN (hypertension) Priority: Secondary Status: Acute Assessment and Plan: per hx. BP controlled. Cont home BP medications Qualifiers: Hypertension type: essential hypertension Qualified Code(s): I10 - Essential (primary) hypertension (5) Morbidly obese Priority: Secondary Status: Acute Assessment and Plan: BMI 43; lifestyle modifications encouraged. Hospital course: See assessment and plan for hospital course Discharge discussed with: patient - Time Spent with Patient Total time spent providing and/or coordinating discharge services: - Discharge Medications Prescriptions: Amoxicillin/Clavulanate [Augmentin] 875 mg PO BIDWM #14 tablet Home Medications: Glyburide-Metformin 5-500 mg 1,000 mg PO BID 02/10/18 [History] Prilosec 20 mg PO DAILY 02/10/18 [History] Exenatide Microspheres [Bydureon] 2 mg SQ QWEEK 04/13/18 [History] Hyoscyamine SL [Levsin Sl] 0.125 mg SL Q4HR PRN 04/13/18 [History] Levothyroxine [Synthroid] 100 mcg PO DAILY 04/13/18 [History] Lisinopril [Zestril] 20 mg PO DAILY 04/13/18 [History] Lutein [Natural Lutein] 20 mg PO DAILY 04/13/18 [History] Montelukast [Singulair] 10 mg PO DAILY 04/13/18 [History] Multivitamin [Multivitamins] 1 each PO DAILY 04/13/18 [History] Triamterene/HCTZ 37.5/25mg [Dyazide] 1 each PO DAILY 04/13/18 [History] Triamterene/HCTZ 37.5/25mg [Dyazide] 1 tab PO DAILY 04/13/18 [History] Venlafaxine HCl [Venlafaxine HCl ER] 150 mg PO DAILY 04/13/18 [History] Amoxicillin/Clavulanate [Augmentin] 875 mg PO BIDWM #14 tablet 04/14/18 [Rx] Allergies/Adverse Reactions: Allergy/AdvReac Type Severity Reaction Status Date / Time No Known Allergies Allergy Verified 04/12/18 15:23 Date of admission: 04/12/18 17:17 Primary care physician: Patrick Torres Jr, MD Discharging clinician: Laverne Pantoja Anticipated date of discharge: 04/14/18 - Constitutional Vitals: Temp Pulse Resp BP Pulse Ox 98.8 F 77 16 137/79 95 04/14/18 10:37 04/14/18 10:37 04/14/18 10:37 04/14/18 10:37 04/14/18 10:37 General appearance: Present: A&O X 3, morbidly obese, pleasant, no acute distress Exam: . - Head Head exam: Present: atraumatic, normocephalic - Eye Eye exam: Present: PERRL, conjuntiva pink, sclera anicteric Pupils: Present: PERRL - Neck Neck exam general surgery: Present: supple, trachea midline. Absent: lymphadenopathy - Respiratory Respiratory exam: Present: CTAB. Absent: accessory muscle use, rales, rhonchi, wheezes - Cardiovascular Cardiovascular exam: Present: RRR, +S1, +S2. Absent: diastolic murmur, gallop, rubs, systolic murmur - GI/Abdominal GI/Abdominal exam: Present: normal bowel sounds, soft, no peritoneal signs. Absent: distended, tenderness - Extremities Exam Extremities exam: Present: warm, radial pulses palpable and symmetrical. Absent: calf tenderness, cyanotic, pedal edema - Neurological Exam Neurological exam: Present: CN II-XII intact, oriented X3, no focal deficits. Absent: pronater drift, facial droop, speech deficit - Skin Skin exam: Present: dry, intact - Patient Status Disposition: Home, Self-Care Condition: Good Functional capacity at discharge: independent ambulation Overall status at discharge: patient is progressing back to baseline - Discharge Instructions Instructions: Amoxicillin/Clavulanate Potassium (By mouth), Urinary Tract Infection in Women (DC), Sepsis (DC) Follow Up With: Patrick Torres Jr, MD [Primary Care Provider] - 04/23/18 11:30 am (Please call for follow-up appt within one week ) Forms: ED Satisfaction Letter - Diet and Activity Activity: increase activity as tolerated Diet: advance to your usual diet
--- NOTE | 2018-04-14 14:52 | Electrocardiograph Report ---
[place] [id number] Test Date: 2018-04-12 Pat Name: Parisa Louise Department: EXAM3 Room: 3A Gender: F Family Caseworker: : [id number] Requested By: Mauro Garsia Order Number: [id number] Reading MD: Samira Meza Measurements Intervals [place] Rate: 110 P: 51 MO: 163 QRS: -11 QRSD: 91 T: 50 QT: 319 QTc: 432 Interpretive Statements Sinus tachycardia Low voltage, precordial leads Electronically Signed On 04-14-2018 14:51:03 EST by Samira Meza
== END 2018-04-14 13:25 | disposition home or self-care (01) | DRG 872 ==
LOC: EMEROOARM 14:45 → 3ANU 14:45 → UNDODISOB 04-14 13:25
PROVIDERS: ADMIT Internal Medicine; ATTEND Internal Medicine